=== PATIENT | female | born 1970 | race Caucasian/White ===

== ENCOUNTER 2022-01-09 08:27 | Outpatient (CLI) | payer OTHER, SELFPAY ==
--- NOTE | ~2022-01-09 | MR_ITS ---
EXAMINATION: MR hand RT wo con DATE: 01/09/2022 09:41 INDICATION: Pain, swelling and bruising at the right third digit with inability to flex or extend the interphalangeal joints post injury with chain having pulled the third digit. TECHNIQUE: Magnetic resonance imaging (MRI) of the right hand was performed without intravenous contr ast to include the metacarpals and digits but excluding the carpus. Sequences included sagittal, meme nal, and axial T1-weighted FSE and T2-weighted FS FSE. COMPARISON: None FINDINGS: Bone alignment is normal. Normal marrow signal throughout with no fracture, reactive edema or patholo gic marrow replacing process. Joint spaces are normal with no joint effusions. Small sagittally orien christofer split tear at the central slip of the extensor digitorum communis tendon at the level of the neck of the middle phalanx which extends distally to at least partially involve the insertion at the dors al base of the middle phalanx. The remaining flexor and extensor tendons as well as the visualized in trinsic musculature of the hand are normal. There is a tear of the C3 annular bry at the level of the neck of the third proximal phalanx which appears thickened with increased signal. There is increa sed separation of the flexor bry relative to the volar margin of the bone at the neck of the proxi mal phalanx. The more proximal A2 and distal A3 pulleys appear to remain intact. The collateral ligam ent complex at the metacarpophalangeal and interphalangeal joints are normal. There is mild edema kellen rounding the proximal interphalangeal joint. IMPRESSION: 1. Longitudinal split tear of the distal central slip of the extensor digitorum communis tendon of th e third digit with partial tear at its insertion at the dorsal base of the middle phalanx. 2. Tear of the C3 annular bry at the level of the neck of the third proximal phalanx with mild bow stringing of the flexor tendon. No evident tear of the more proximal A2 or distal A3 pulleys. Reviewed, dictated and finalized at location B. AN IMPRESSION: 1. Longitudinal split tear of the distal central slip of the extensor digitorum communis tendon of the third digit with partial tear at its insertion at the d orsal base of the middle phalanx. 2. Tear of the C3 annular bry at the level of the neck of the third proximal phalanx with mild bowstringing of the flexor tendon. No evident tear of the mo re proximal A2 or distal A3 pulleys.
== END 2022-01-09 08:28 | disposition home or self-care (01) ==
PROVIDERS: PCP Family Medicine; Visit Provider Family Medicine
DX: S66.811A Strain of other specified muscles, fascia and tendons at wrist and hand level, right hand, initial encounter (principal); X58.XXXA Exposure to other specified factors, initial encounter
CPT/HCPCS: 73218